=== PATIENT | female | born 1955 | race Caucasian/White ===

== ENCOUNTER 2016-05-12 02:04 | Emergency (ER) | payer MEDICARE, OTHER | END 2016-05-12 04:57 | disposition home or self-care (01) | LOC: ER 02:04 | DX: R11.2 Nausea with vomiting, unspecified (principal); R10.9 Unspecified abdominal pain; E11.9 Type 2 diabetes mellitus without complications; K21.9 Gastro-esophageal reflux disease without esophagitis; F32.9 Major depressive disorder, single episode, unspecified; Z88.1 Allergy status to other antibiotic agents; Z88.8 Allergy status to other drugs, medicaments and biological substances | CPT/HCPCS: 36415; 51701; 96361; 96374 ==

== ENCOUNTER 2016-06-10 22:26 | Observation (INO) | payer MEDICARE, OTHER ==
[~2016-06-10] VITALS: Ht 172.7 cm; Wt 74.8 kg
== END 2016-06-13 15:00 | disposition home or self-care (01) ==
LOC: ER 22:26 → MED 06-11 02:24
PROVIDERS: ADMIT Internal Medicine
DX: K21.9 Gastro-esophageal reflux disease without esophagitis (principal); E86.0 Dehydration; E87.6 Hypokalemia; E83.42 Hypomagnesemia; E03.9 Hypothyroidism, unspecified; D72.819 Decreased white blood cell count, unspecified; D69.6 Thrombocytopenia, unspecified; F41.9 Anxiety disorder, unspecified; F32.9 Major depressive disorder, single episode, unspecified; Z86.718 Personal history of other venous thrombosis and embolism; Z88.1 Allergy status to other antibiotic agents; Z88.8 Allergy status to other drugs, medicaments and biological substances; Z79.01 Long term (current) use of anticoagulants; Z79.899 Other long term (current) drug therapy; Z90.49 Acquired absence of other specified parts of digestive tract; Z93.3 Colostomy status
CPT/HCPCS: 36415; 84145; 87507; 92610; 96365; 96366; 96372; 96374; 96375; 96376; G0378; J1650; J2765